=== PATIENT | female | born 1975 | race African-American/Black ===

== ENCOUNTER 2016-12-07 14:29 | Emergency (ER) | payer MEDICAID ==
[~2016-12-07] VITALS: Ht 160 cm; Wt 167.8 kg
[~2016-12-07 14:29] MED LIST: ACCUNEB SOL3 ML/NE1 IN; ALBUTEROL-200 PUFFS/ IH; KEFLEX 500MG.500 MG PO; PREDNISONE 20MG20 MG PO; SYMBICORT1 AE1 IH; TESSALON PERLE100 MG PO; VENTOLIN H0.09 MG/AC IH; ZITHROMAX Z-PA250 M1 PO
--- NOTE | 2016-12-07 14:53 | Urgent Treatment Center Report ---
See Addendum History of Present Issue Date/Time Seen by Provider 12/07/16 8145 Visit Reason Pt arrived:Walked Presenting Problem:PT C/O INCREASED SOA D/T ASTHMA AND LACK OF INHALERS. PT IS REQUESTING A REFILL OF HER INHALERS Location if Accident: Onset of symptoms date/time:/ or onset unknown for:MEDICAL HX UNKNOWN Have you (or family members/close friends) recently traveled outside the [place]? If Yes, where/when: Have you had exposure to infectious disease within the past month? TB? Other? Specify: c/o increasing SOA due to asthma. Hx of asthma typically controlled w/ symbicort daily and occasional albuterol but has been out of symbicort and albuterol x "weeks". PCP suddenly and she hasn't found a new provider yet. Reports she is here for refill of her inhalers. Had albuterol nebs and they help "but only briefly". Using them 3-4 times a day. c/o wheezing and SOA with exertion. Denies fever, malaise. "I don't feel bad. if I am sitting still I am just fine." Declines CXR. "I don't feel like I need that. I just need my inhalers and I think I will be fine again". Source patient Exam Limitations no limitations ALLERGIES Coded Allergies: Penicillins (Intermediate, I-HIVES 06/16/15) Home Medications Active Scripts CEPHALEXIN (Keflex 500MG Capsule) 500 MG PO Q8H #30 CAP Prov: 11/03/15 Albuterol (Albuterol-Hfa Inhaler) 4 PUFF IH Q4HP PRN shortness of breath #1 INH Ref 2 Prov: 04/02/14 Reported Medications BUDESONIDE/FORMOTEROL FUMARATE (Symbicort 160-4.5 Mcg Inhaler) 1 PUFF IH BID #10 History Medical History General CAD? No Angina: No MO: No Hypertension? No Hyperlipidemia? No CHF? No DVT? No PE? No COPD? No Asthma? Yes Anemia? No GERD? No Gastric ulcers? No GI Bleed? No Hernia? No Thyroid Problems? No Hypothyroidism? No CVA? No Seizures? Yes Diabetes? No Renal Insuffiency? No UTI? No Stones? No GB Disease: No Nephritic Syndrome? No Asplenia? No Hepatitis? No Sickle Cell Disease? No Arthritis? No Migraines? No Cataracts? No Glaucoma? No MRSA? No HIV? No TB? No Anxiety? No Depression? No Cancer? No Immunization HX DT/Tetanus UNKNOWN Surgical Hx Previous Surgery?Y TUBAL LIGATION Social History Alcohol Alcohol: No Review of Systems All Other Systems Reviewed and Negative Constitutional see HPI Eyes denies drainage ENT denies: ear pain, nose discharge, nose congestion, throat pain. Respiratory see HPI Cardiovascular denies chest pain, denies palpitations Musculoskeletal denies other (aches) Skin denies rash Psychiatric/Neurological denies headache Physical Exam Vital Signs Vital Signs Date Time Temp Pulse Resp B/P Pulse O2 O2 Flow FiO2 Ox Delivery Rate 12/07 1444 98.4 99 20 153/118 92 12/07 1433 98.4 99 20 153/118 92 General Appearance no apparent distress, obese Ear, Nose, Throat normal ENT inspection Neck non-tender, supple Respiratory Status Yes: trachea midline, chest symmetrical, non tender chest. No: respiratory distress, use of accessory muscles, pain on inspiration, pain on expiration, productive cough, non productive cough. Lung Sounds bilateral: wheezing (expiratory throughout ant/post). Cardiovascular regular rate/rhythm, no peripheral edema, no murmur Neurologic alert, oriented x 3 Mental status normal mood/affect Skin normal color, warm/dry Lymphatic no adenopathy Medical Decision Making LABS/Meds/Orders Pt receiving controlled substance in ED? No Results/Orders Current Medication Orders Sig/Ellie Start time Last Medication Dose Route Stop Time Status Admin Albuterol 2.5 MG ONCE ONE 12/07 1500 DC INH 12/07 1501 Methylprednisolone 125 MG ONCE ONE 12/07 1500 DC 12/07 Sodium Succinate IM 12/07 1501 1504 Methylprednisolone 0 .STK-MED ONE 12/07 1455 DC Sodium Succinate .ROUTE Orders Procedure Date/time Status RT REQUEST ALBUTEROL NEB 12/07 1450 Active Progress [facility] Progress Notes Date 12/07/16 Time 1528 Comment pt reporting "I feel so much better already". Wheezing nearly gone. Very faint wheeze end of expiration billie upper lobes only. Agrees to follow up with a new Primary care. Departure Departure Time of Disposition 1529 Disposition DC Home or Self Care(routine) Clinical Impression Primary Impression: Asthma Qualifiers: Asthma severity: unspecified severity Asthma complication type: with acute exacerbation Qualified Code: J45.901 - Unspecified asthma with (acute ) exacerbation Secondary Impressions: Medication refill Condition STABLE Referrals NO REFERRAL Due to the sudden passing of your family physician, we have provided you with a list of providers accepting patients. I would encourage you find him a new primary care provider and make an appt TAWANDA as it can take weeks to get a new patient appointment. In the meantime, follow up in the clinic or ER for new, worsening or persistent symptoms. Patient Instructions DI for Asthma -- Adult Additional Instructions * Inhaler or neb every 4-6 hours as needed for shortness of breath or wheezing. * Start symbicort immediately today. Use daily as previously scheduled. * Start steroid tomorrow as you had solu-medrol shot in clinic today. Helps with inflammation therefore, cough and wheezing. Follow directions on package. Rvwd side effects. Pt reports they have taken them before. Follow up extremely important Discharge Counseling Counseled pt/family regarding diagnosis, medications/RX, home care, follow up needs Prescriptions Current Visit Scripts ALBUTEROL (Proventil Hfa Inhaler) 1-2 PUFF IH Q4-6H PRN PRN SOA, wheezing #1 CAN use neb or inhaler NOT both BUDESONIDE/FORMOTEROL FUMARATE (Symbicort 160-4.5 Mcg Inhaler) 1 AER IH BID #1 AER Prednisone (Prednisone 20MG) 20 MG PO BID #10 TAB at 8021
[2016-12-07] MEDS ORDERED: PREDNISONE 20MG20 MG PO (15:34)
[2016-12-07] MEDS ORDERED: SYMBICORT 10.10.2 M1 IH (15:34)
[2016-12-07] MEDS ORDERED: PROVENTIL0.09 MG/A1 IH (15:34)
[2016-12-07 15:37] VITALS: BP 153/118
== END 2016-12-07 15:37 | disposition home or self-care (01) ==
LOC: ER 14:29 → UTC 14:41
DX: J45.901 Unspecified asthma with (acute) exacerbation (principal)

== ENCOUNTER 2017-03-11 23:08 | Emergency (ER) | payer MEDICAID ==
[~2017-03-11] VITALS: Ht 160 cm; Wt 181.0 kg
[~2017-03-11 23:08] MED LIST changes: +PROVENTIL0.09 MG/A1 IH; +SYMBICORT 10.10.2 M1 IH
--- OUTSIDE RECORDS SUMMARY | 2017-03-11 23:19 | External Medical Summary Rpt | CCD ---
Author Author , WILD ROME Address Unknown Phone [email or web address] Care Team Providers Care Education Counselor Name Role Phone SARAHI MCCLAIN Unavailable Unavailable ARNMIKE ELIZABETH, ARNOLD Unavailable Unavailable ELIZABETH [facility] Unavailable Unavailable INC, [facility] Unavailable Unavailable [facility], [facility] Unavailable Unavailable IMAGING ASS, [facility] NURSE Unavailable Unavailable PRACTITIONER GR, [facility]URSE PRACTITIONER [facility] Un[facility], [facility], Unavailable Unavailable PLLC, [facility] Unavailable Unavailable EQUIPME, [facility] Purpose Continuity of Care Document - 12-20-2012 through 2016 Problems Code Diagnosis DOS Provider Status [id number] UNSPECIFIED 01-27-2017 [facility] UNCOMPLICAT MEDICAL ED EQUIPME R092 RESPIRATORY 01-27-2017 [facility] E6601 MORBID 12-13-2016 [facility] DUE [facility]ATION TO EXCESS CALORIES X24098 UNSPECIFIED 12-07-2016 [facility] WITH ACUTE INC EXACERBATIO N G4733 OBSTRUCTIVE 07-26-2016 [facility] NURSE SLEEP PRACTITIONE APNEA ADULT R GR PEDIATRIC I2781 COR 07-26-2016 [facility] NURSE P[place]MON[place] PRACTITIONE CHRONIC R GR R0609 OTHER FORMS 07-26-2016 [facility] NURSE OF DYSPNEA PRACTITIONE R GR R600 LOCALIZED 07-26-2016 [facility] NURSE EDEMA PRACTITIONE R GR G4730 SLEEP APNEA 06-06-2016 [facility] UNSPECIFIED F[facility]ATION R89249 UNSPECIFIED 05-04-2016 [facility] WITH STATUS ASTHMATICUS J449 CHRONIC 12-28-2015 SARAHI ELIZABETH OBSTRUCTIVE PULMONARY DISEASE UNS K044 ACUTE 11-03-2015 [facility] IS OF PULPAL ORIGIN K0500 ACUTE 11-03-2015 [facility] INC INDUCED Z6844 BODY MASS 07-29-2015 [place] [facility] BMI SERV 60.0-69.9 FOUNDATION ADULT Z9981 DEPENDENCE 07-29-2015 [facility] SUPPLEMENTA [facility]ATION L OXYGEN R0600 DYSPNEA 07-02-2015 [facility] UNSPECIFIED SERV [facility] R918 OTHER 06-25-2015 [facility] NONSPECIFIC MEDICAL ABNORMAL IMAGING ASS FINDING OF LUNG FIELD R0602 SHORTNESS 06-19-2015 [facility] SERV [facility] Z8709 PERSONAL 06-03-2015 [facility] OTH SERV DISEASES [facility] RESPIRATORY SYSTEM 90219 ASTHMA 10-28-2014 ARNOLD ELIZABETH UNSPECIFIED WITH STATUS ASTHMATICUS 20701 OBESITY, 07-23-2014 [facility] P 4019 UNSPECIFIED 07-23-2014 [facility] P N 490 BRONCHITIS 07-23-2014 [facility] P ACUTE OR CHRONIC 40976 ASTHMA, 07-23-2014 [facility] UNSPECIFIED MEDICAL , IMAGING ASS UNSPECIFIED STATUS 33426 SHORTNESS 07-23-2014 [facility]ATH [facility]ICAL IM[facility] Allergies, Adverse Reactions, Alerts Type Drug Allergy Adverse Reaction to Substance Substance Reaction Severity PCN (penicillin) I-HIVES Unknown Clinical Alert Notifications Alert Asthma: ICS non-compliance with h/o of SA beta agonist Asthma: non-ICS non-compliance with h/o of SA beta agonist Medications Na ND Rx Da Fi Fi Am Da Di Ph RX Ph St me C No te ll ll ou ys ag ar # ys at rm s nt no ma ic us Or Da si cy ia de te s n re d VE 00 10 [address] Ac NT 17 -1 -1 .0 00 L- ti OL 30 8 07 MA ve IN 68 20 20 51 RT 22 17 17 61 HF 0 84 PH A AR 90 MA CY MC G #5 IN 91 MOORE LE R DU 00 10 11 13 30 00 WA Ac LE 08 -1 -1 .0 00 L- ti RA 54 8 7 07 MA ve 61 20 20 51 RT 20 00 17 17 61 0 1 85 PH MC AR G/ MA 5 CY MC G #5 IN 91 MOORE LE R MO 57 10 [address] Ac NT 23 -1 -1 .0 00 L- ti EL 70 07 MA ve UK 25 20 20 50 RT 53 17 17 67 T 0 41 PH SO AR D MA 10 CY MG #5 91 TA BL ET DU 00 08 09 13 30 00 RI Ac LE 08 -2 -2 .0 00 TE ti RA 54 5- 9- 00 01 ve 61 20 20 19 AI 20 00 17 17 68 D 0 1 63 PH MC AR G/ MA 5 CY MC G #3 IN 93 MOORE 8 LE R VE 00 08 09 18 16 00 RI Ac NT 17 -2 -2 .0 00 TE ti OL 30 3- 2- 00 01 ve IN 68 20 20 19 AI 22 17 17 67 D HF 0 26 PH A AR 90 MA CY MC G #3 IN 93 MOORE 8 LE R ME 59 08 09 10 5 00 RI Ac ED 74 -2 -2 .0 00 TE ti NI 60 3- 2- 00 01 ve SO 17 20 20 19 AI NE 50 17 17 67 D 6 32 PH 20 AR MA MG CY TA #3 BL 93 ET 8 VE 00 05 06 18 17 00 WA Ac NT 17 -1 -1 .0 00 L- ti OL 30 4- 6- 00 07 MA ve IN 68 20 20 44 RT 22 17 17 07 HF 0 45 PH A AR 90 MA CY MC G #5 IN 91 MOORE LE R FU 00 04 05 30 30 00 WA Ac RO 37 -1 -1 .0 00 L- ti SE 80 1- 2- 00 07 MA ve IN 20 20 20 48 RT DE 81 17 17 16 0 23 PH 20 AR MA MG CY TA #5 BL 91 ET ME 59 04 05 65 30 00 WA Ac ED 74 -1 -1 .0 00 L- ti NI 60 1- 2- 00 07 MA ve SO 17 20 20 48 RT NE 30 17 17 16 6 26 PH 10 AR MA MG CY TA #5 BL 91 ET VE 00 03 04 18 17 00 WA Ac NT 17 -0 -0 .0 00 L- ti OL 30 7- 7- 00 07 MA ve IN 68 20 20 44 RT 22 17 17 07 HF 0 45 PH A AR 90 MA CY MC G #5 IN 91 MOORE LE R SY 00 03 04 10 30 00 WA Ac MB 18 -0 -0 .1 00 L- ti IC 60 7- 7- 99 07 MA ve OR 37 20 20 44 RT T 02 17 17 07 16 0 43 PH 0- AR 4. MA 5 CY MC G #5 IN 91 MOORE LE R VE 00 01 02 18 17 00 WA Ac NT 17 -2 -2 .0 00 L- ti OL 30 2- 4- 00 07 MA ve IN 68 20 20 44 RT 22 17 17 07 HF 0 45 PH A AR 90 MA CY MC G #5 IN 91 MOORE LE R SY 00 01 02 10 30 00 [facility] MB 18 -2 -2 .1 00 L- ti IC 60 2- 4- 99 07 MA ve OR 37 20 20 44 RT T 02 17 17 07 16 0 43 PH 0- AR 4. MA 5 CY MC G #5 IN 91 MOORE LE R SY 00 12 01 10 30 00 [facility] MB 18 -1 -1 .1 00 L- ti IC 60 1- 3- 99 07 MA ve OR 37 20 20 44 RT T 02 16 17 07 16 0 43 PH 0- AR 4. MA 5 CY MC G #5 IN 91 MOORE LE R CL 63 12 01 21 7 00 RI Ac IN 30 -0 -0 .0 00 TE ti DA 40 2- 9- 00 01 ve MY 69 20 20 16 AI CI 30 16 17 08 D N 1 43 PH HC AR L MA 30 CY 0 MG #3 93 CA 8 PS UL E VE 00 09 0 No NT 17 -0 OL 30 6- Lo IN 68 20 ng 22 13 er HF 4 A Ac 90 ti ve MC G IN MOORE LE R Ae 08 09 0 No ro 37 -0 ch 30 6- Lo am 76 20 ng be 50 13 er r/ 0 Op Ac ti ti moore ve le r Ae 08 09 0 No ro 37 -0 ch 30 6- Lo am 76 20 ng be 50 13 er r/ 0 Op Ac ti ti moore ve le r FU 51 09 0 No RO 07 -0 SE 90 6- Lo IN 07 20 ng DE 32 13 er 0 40 Ac ti MG ve TA BL ET IP 00 09 0 No RA 48 -0 T- 70 5- Lo AL 20 20 ng BU 10 13 er T 1 0. Ac 5- ti 3( ve 2. 5) MG /3 ML Vital Signs 12-21-2012 00:29 Name Value Interpretat Reference Comment ion Range BP 70 mm[Hg] Diastolic BP Systolic 127 mm[Hg] Heart 102 /min Rate/Pulse O2% 98 % Respiratory 18 /min Rate 12-21-2012 00:21 Name Value Interpretat Reference Comment ion Range BP 92 mm[Hg] Diastolic BP Systolic 120 mm[Hg] Heart 98 /min Rate/Pulse Respiratory 20 /min Rate 12-20-2012 23:53 Name Value Interpretat Reference Comment ion Range O2% 86 % Encounters Encounter Start End Date Code Location Performer Type Date [facility] - 7 7 [facility] 7 [facility] - 7 7 [facility] - 6 6 [facility] - 6 6 [facility] - 6 6 [facility] - 6 6 [facility] - 5 5 [facility] LOCO Dominguez MD (ER) 3 23:45 3 00:30 [facility]
--- OUTSIDE RECORDS SUMMARY | 2017-03-11 23:19 | External Medical Summary Rpt | CCD ---
Author Author , WILD ROME Address Unknown Phone [email or web address] Care Team Providers Care Brick Grader Name Role Phone SARAHI MCCLAIN Unavailable Unavailable ARNMIKE ELIZABETH, ARNOLD Unavailable Unavailable ELIZABETH [facility] Unavailable Unavailable INC, [facility] Unavailable Unavailable HOSPITAL P, [facility] Unavailable Unavailable IMAGING ASS, [facility] IM[facility]ING [facility] NURSE Unavailable Unavailable PRACTITIONER GR, [facility]SE PRACTITIONER [facility] Un[facility], [facility], Unavailable Unavailable PLLC, [facility] Unavailable Unavailable EQUIPME, [facility] Purpose Continuity of Care Document - 12-20-2012 through 2016 Problems Code Diagnosis DOS Provider Status [id number] UNSPECIFIED 01-27-2017 [facility] UNCOMPLICAT MEDICAL ED EQUIPME R092 RESPIRATORY 01-27-2017 [facility] E6601 MORBID 12-13-2016 [place] [facility] DUE [facility]ATION TO EXCESS CALORIES R34166 UNSPECIFIED 12-07-2016 [facility] WITH ACUTE INC EXACERBATIO N G4733 OBSTRUCTIVE 07-26-2016 [facility] NURSE SLEEP PRACTITIONE APNEA ADULT R GR PEDIATRIC I2781 COR 07-26-2016 [facility] NURSE P[place]MON[place] PRACTITIONE CHRONIC R GR R0609 OTHER FORMS 07-26-2016 [facility] NURSE OF DYSPNEA PRACTITIONE R GR R600 LOCALIZED 07-26-2016 [facility] NURSE EDEMA PRACTITIONE R GR G4730 SLEEP APNEA 06-06-2016 [facility]PEC[facility]IED [facility] H48909 UNSPECIFIED 05-04-2016 [facility] WITH STATUS ASTHMATICUS J449 CHRONIC 12-28-2015 SARAHI ELIZABETH OBSTRUCTIVE PULMONARY DISEASE UNS K044 ACUTE 11-03-2015 [facility] IS OF PULPAL ORIGIN K0500 ACUTE 11-03-2015 [facility] INC INDUCED Z6844 BODY MASS 07-29-2015 [place] [facility] IN[facility] BMI SERV 60.0-69.9 [facility]OUNDATION ADULT Z9981 DEPENDENCE 07-29-2015 [place] [facility] SUPPLEMENTA [facility]ATION L OXYGEN R0600 DYSPNEA 07-02-2015 [place] [facility] UNSPECIFIED SERV [facility] R918 OTHER 06-25-2015 [facility] NONSPECIFIC MEDICAL ABNORMAL IMAGING ASS FINDING OF LUNG FIELD R0602 SHORTNESS 06-19-2015 [place] [facility] SERV [facility] Z8709 PERSONAL 06-03-2015 [place] [facility] OTH SERV DISEASES [facility] RESPIRATORY SYSTEM 13010 ASTHMA 10-28-2014 ARNOLD ELIZABETH UNSPECIFIED WITH STATUS ASTHMATICUS 22167 OBESITY, 07-23-2014 [facility] P 4019 UNSPECIFIED 07-23-2014 [facility] P N 490 BRONCHITIS 07-23-2014 [facility] P ACUTE OR CHRONIC 98114 ASTHMA, 07-23-2014 [facility] UNSPECIFIED MEDICAL , IMAGING ASS UNSPECIFIED STATUS 10884 SHORTNESS 07-23-2014 [facility]ICAL IMAGING [...] VE 00 10 11 18 30 00 IA Ac NT 17 -1 -1 .0 00 [...] MO 57 10 11 30 30 00 IA Ac NT 23 -1 -1 .0 00 [...] #3 IN 93 MOORE 8 LE R MD 59 08 09 10 5 00 RI [...] 80 1- 2- 00 07 MA ve PA 20 20 20 48 RT DE 81 17 17 16 0 23 PH 20 AR MA MG CY TA #5 BL 91 ET MD 59 04 05 65 30 00 WA [...] SY 00 01 02 10 30 00 [facility] MB 18 -2 -2 .1 00 L- ti IC 60 2- 4- 99 07 MA ve OR 37 20 20 44 RT T 02 17 17 07 16 0 43 PH 0- AR 4. MA 5 CY MC G #5 IN 91 MOORE LE R SY 00 12 01 10 30 00 [facility] MB 18 -1 -1 .1 00 L- [...] RO 07 -0 SE 90 6- Lo PA 07 20 ng DE 32 13 er [...] End Date Code Location Performer Type Date [facility] - 7 7 [facility] - 7 7 [facility] - 6 6 [facility] - 6 6 [facility] - 6 6 [facility] - 6 6 [facility] - 5 5 [facility] LOCO Dominguez MD (ER) 3 23:45 3 00:30 [facility]
--- OUTSIDE RECORDS SUMMARY | 2017-03-11 23:20 | External Medical Summary Rpt ---
Author Author WILD Augustine, WILD Augustine Organization [employer] Address Unknown Phone Unavailable
--- OUTSIDE RECORDS SUMMARY | 2017-03-11 23:20 | External Medical Summary Rpt | CCD ---
Demographics Preferred Language Belizean Marital Status Unknown Moravian Affiliation Unknown Race Unknown Ethnic Group Unknown Author Author , WILD ROME Address Unknown Phone Immunization No patient found.
--- OUTSIDE RECORDS SUMMARY | 2017-03-11 23:20 | External Medical Summary Rpt | CCD ---
Author Author , WILD ROME Address Unknown Phone [email or web address] Care Team Providers Care Auto Parts Salesperson Name Role Phone SARAHI MCCLAIN Unavailable Unavailable ARNMIKE ELIZABETH, ARNOLD Unavailable Unavailable [facility] Un[facility], [facility] Unavailable Unavailable HOSPITAL P, [facility] Unavailable Unavailable IMAGING ASS, [facility] NURSE Unavailable Unavailable PRACTITIONER GR, [facility] Un[facility], [facility], Unavailable Unavailable PLLC, [facility] Unavailable Unavailable EQUIPME, [facility] Purpose Continuity of Care Document - 07-23-2014 through 2016 Problems Code Diagnosis DOS Provider Status [id number] UNSPECIFIED 01-27-2017 [facility] UNCOMPLICAT MEDICAL ED EQUIPME R092 RESPIRATORY 01-27-2017 [facility] E6601 MORBID 12-13-2016 [facility] OBESITY DUE [facility]OUNDATION TO EXCESS CALORIES U53639 UNSPECIFIED 12-07-2016 [facility] WITH ACUTE INC EXACERBATIO N G4733 OBSTRUCTIVE 07-26-2016 [facility] N[facility]SE SLEEP PRACTITIONE APNEA ADULT R GR PEDIATRIC I2781 COR 07-26-2016 [facility] NURSE PULMONALE PRACTITIONE CHRONIC R GR R0609 OTHER FORMS 07-26-2016 [facility] NURSE OF DYSPNEA PRACTITIONE R GR R600 LOCALIZED 07-26-2016 [facility] NURSE EDEMA PRACTITIONE R GR G4730 SLEEP APNEA 06-06-2016 [facility] UNSPECIFIED [facility] R95408 UNSPECIFIED 05-04-2016 [facility] WITH STATUS ASTHMATICUS J449 CHRONIC 12-28-2015 ARNOLD ELIZABETH OBSTRUCTIVE PULMONARY DISEASE UNS K044 ACUTE 11-03-2015 [facility] PERIODONTIT PLLC IS OF PULPAL ORIGIN K0500 ACUTE 11-03-2015 [facility] INDUCED Z6844 BODY MASS 07-29-2015 [facility] BMI SERV 60.0-69.9 [facility]OUNDATION ADULT Z9981 DEPENDENCE 07-29-2015 [facility] SUPPLEMENTA [facility] L OXYGEN R0600 DYSPNEA 07-02-2015 [facility] UNSPECIFIED SERV [facility] R918 OTHER 06-25-2015 [facility] NONSPECIFIC MEDICAL ABNORMAL IMAGING ASS FINDING OF LUNG FIELD R0602 SHORTNESS 06-19-2015 [facility] SERV [facility] Z8709 PERSONAL 06-03-2015 [facility] H[facility] OTH SERV DISEASES [facility]OUNDATION RESPIRATORY SYSTEM 94664 ASTHMA 10-28-2014 ARNOLD ELIZABETH UNSPECIFIED WITH STATUS ASTHMATICUS 26055 OBESITY, 07-23-2014 [facility] 4019 UNSPECIFIED 07-23-2014 [facility] P N 490 BRONCHITIS 07-23-2014 [facility] P ACUTE OR CHRONIC 89736 ASTHMA, 07-23-2014 [facility] UNSPECIFIED MEDICAL , IMAGING ASS UNSPECIFIED STATUS 63291 SHORTNESS 07-23-2014 [facility] Medications Na ND Rx Da Fi Fi Am Da Di Ph RX Ph St me C No te ll ll ou ys ag ar # ys at rm s nt no ma ic us Or Da si cy ia de te s n re d VE 00 10 11 18 30 00 WA Ac NT 17 -1 -1 .0 00 L- ti OL 30 8- 7- 00 07 MA ve IN 68 20 20 51 RT 22 17 17 61 HF 0 84 PH A AR 90 MA CY MC G #5 IN 91 MOORE LE R DU 00 10 11 13 30 00 WA Ac LE 08 -1 -1 .0 00 L- ti RA 54 8- 7- 00 07 MA ve 61 20 20 51 RT 20 00 17 17 61 0 1 85 PH MC AR G/ MA 5 CY MC G #5 IN 91 MOORE LE R MO 57 10 11 30 30 00 WA Ac NT 23 -1 -1 .0 00 L- ti EL 70 8- 7- 00 07 MA ve UK 25 20 20 [...] #3 IN 93 MOORE 8 LE R ID 59 08 09 10 5 00 RI [...] 80 1- 2- 00 07 MA ve ND 20 20 20 48 RT DE 81 17 17 16 0 23 PH 20 AR MA MG CY TA #5 BL 91 ET ID 59 04 05 65 30 00 WA [...] SY 00 01 02 10 30 00 WA Ac MB 18 -2 -2 .1 00 L- ti IC 60 2- 4- 99 07 MA ve OR 37 20 20 44 RT T 02 17 17 07 16 0 43 PH 0- AR 4. MA 5 CY MC G #5 IN 91 MOORE LE R SY 00 12 01 10 30 00 WA Ac MB 18 -1 -1 .1 00 L- [...] #3 93 CA 8 PS UL E Encounters Encounter Start End Date Code Location Performer Type Date [facility] - 7 7 [facility] - 7 7 [facility] - 7 7 [facility] - 6 6 [facility] - 6 6 [facility] - 6 6 [facility] - 5 5 [facility]
--- OUTSIDE RECORDS SUMMARY | 2017-03-11 23:20 | External Medical Summary Rpt | CCD ---
Demographics Preferred Language Nigerien Marital Status Unknown Sikh Affiliation Unknown Race Unknown Ethnic Group Unknown Author Author , WILD ROME Address Unknown Phone Immunization No patient found.
--- OUTSIDE RECORDS SUMMARY | 2017-03-11 23:20 | External Medical Summary Rpt | CCD ---
Author Author , [place] Address Unknown Phone [email or web address] Care Team Providers Care Assurance Officer Name Role Phone SARAHI MCCLAIN Unavailable Unavailable ARNMIKE ELIZABETH, ARNOLD Unavailable Unavailable [facility] Unavailable Unavailable [facility], [facility] Unavailable Unavailable HOSPITAL P, [facility] P [facility] Unavailable Unavailable IMAGING ASS, [facility] NURSE Unavailable Unavailable PRACTITIONER GR, [facility] Un[facility], [facility] Un[facility] Unavailable [facility], [facility] Unavailable Unavailable EQUIPME, [facility] Purpose Continuity of Care Document - 07-23-2014 through 2016 Problems Code Diagnosis DOS Provider Status [id number] UNSPECIFIED 01-27-2017 [facility] UNCOMPLICAT [facility]ICAL ED EQUIPME R092 RESPIRATORY 01-27-2017 [facility] E6601 MORBID 12-13-2016 [facility] OBESITY DUE [facility]OUNDATION TO EXCESS CALORIES E03317 UNSPECIFIED 12-07-2016 [facility] WITH ACUTE INC EXACERBATIO N G4733 OBSTRUCTIVE 07-26-2016 [facility]SE SLEEP PRACTITIONE APNEA ADULT R GR PEDIATRIC I2781 COR 07-26-2016 [facility] NURSE PULMONALE PRACTITIONE CHRONIC R GR R0609 OTHER FORMS 07-26-2016 [facility] NURSE OF DYSPNEA PRACTITIONE R GR R600 LOCALIZED 07-26-2016 [facility] NURSE EDEMA PRACTITIONE R GR G4730 SLEEP APNEA 06-06-2016 [facility] UNSPECIFIED [facility] C36200 UNSPECIFIED 05-04-2016 [facility] WITH STATUS ASTHMATICUS J449 CHRONIC 12-28-2015 ARNOLD ELIZABETH OBSTRUCTIVE PULMONARY DISEASE UNS K044 ACUTE 11-03-2015 [facility] IS OF PULPAL ORIGIN K0500 ACUTE 11-03-2015 [facility] INDUCED Z6844 BODY MASS 07-29-2015 [facility] BMI SERV 60.0-69.9 FOUNDATION ADULT Z9981 DEPENDENCE 07-29-2015 [facility] SUPPLEMENTA [facility] L OXYGEN R0600 DYSPNEA 07-02-2015 [facility]NSPECIFIED SERV [facility] R918 OTHER 06-25-2015 [facility] ABNORMAL [facility] FINDING OF LUNG FIELD R0602 SHORTNESS 06-19-2015 [facility] BREATH SERV F[facility]ATION Z8709 PERSONAL 06-03-2015 [facility] OTH SERV DISEASES [facility] RESPIRATORY SYSTEM 72841 ASTHMA 10-28-2014 AR[facility] ELIZABETH UNSPECIFIED WITH STATUS ASTHMATICUS 15693 OBESITY, 07-23-2014 [facility]019 UNSPECIFIED 07-23-2014 [facility] P N 490 BRONCHITIS 07-23-2014 [facility] P ACUTE OR CHRONIC 64434 ASTHMA, 07-23-2014 [facility] U[facility]PECIFIED [facility]ICAL , IMAGING ASS UNSPECIFIED STATUS 56677 SHORTNESS 07-23-2014 [facility] Medications Na [...] #3 IN 93 MOORE 8 LE R [place] 59 08 09 10 5 00 RI [...] 80 1- 2- 00 07 MA ve AK 20 20 20 48 RT DE 81 17 17 16 0 23 PH 20 AR MA MG CY TA #5 BL 91 ET [place] 59 04 05 65 30 00 WA [...] End Date Code Location Performer Type Date [facility] - 7 7 [facility] - 7 7 [facility] - 7 7 [facility] - [address] [facility] - [address] [facility] - 6 6 [facility] - 6 6 [facility] - 5 5 [facility]
[2017-03-11] MEDS ORDERED: DULERA1 AR1 IH (23:21)
--- NOTE | 2017-03-11 23:34 | Emergency Room Report ---
History of Present Illness Time Seen by [id number] Presenting Problem in Triage Pt arrived:Walked Presenting Problem:C/O BILATERAL LEG PAIN FOR APPROX 2 WEEKS. 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 N Clinical Suspician of Infection? Y Mental Status: 1 - Regular (Normal Baseline) Sepsis Risk:Possible Sepsis Risk Have you (or family members/close friends) recently traveled outside the [place]? N If Yes, where/when: Have you had exposure to infectious disease within the past month? N TB? Other? Specify: Comment The patient complains of bilateral leg pain, swelling, weeping, and redness. She says that she has a history of cellulitis and thinks that she is getting infection or legs causing these symptoms. She has not had a fever. She says that she was on Lasix, prescribed by her pulmonary doctor in July. This was supposed to be a daily medication. She says however that she stopped taking it because it was making her urinate at work. She started taking it again 3 weeks ago, but ran out on Monday 3 days ago. However, she says that she has a refill. Has not picked up her refill. 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 States her blood pressure has been running high recently. She is not treated for hypertension. ALLERGIES Coded Allergies: Penicillins (Intermediate, I-HIVES 06/16/15) Home Medications Active Scripts ALBUTEROL (Proventil Hfa Inhaler) 1-2 PUFF IH Q4-6H PRN PRN SOA, wheezing #1 CAN Prov: 12/07/16 Reported Medications MOMETASONE/FORMOTEROL (Dulera 200 Mcg/5 Mcg Inhaler) 2 PUFFS IH BID #13 History Medical History General CAD? No Angina: No OR: No Hypertension? No Hyperlipidemia? No CHF? No DVT? No PE? No COPD? No Asthma? Yes Anemia? No GERD? No Gastric ulcers? No GI Bleed? No Hernia? No Thyroid Problems? No Hypothyroidism? No CVA? No Seizures? Yes Diabetes? No Renal Insuffiency? No End Stage Renal Disease? No UTI? No Stones? No GB Disease: No Nephritic Syndrome? No Asplenia? No Hepatitis? No Sickle Cell Disease? No Arthritis? No Migraines? No Cataracts? No Glaucoma? No MRSA? No HIV? No TB? No Anxiety? No Depression? No Cancer? 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 Social History Smoking Hx Smoker: Never Smoker Tobacco: No Alcohol Alcohol: No Review of Systems All Other Systems Reviewed and Negative Constitutional denies fever Respiratory denies shortness of breath Cardiovascular denies chest pain, edema Musculoskeletal see HPI Physical Exam Vital Signs Vital Signs Date Time Temp Pulse Resp B/P Pulse O2 O2 Flow FiO2 Ox Delivery Rate 03/12 0115 98.1 96 20 158/99 92 03/12 0021 100 20 150/100 95 03/11 2315 98.1 105 20 155/122 95 General Appearance no apparent distress, sitting in chair Eye Exam - bilateral eye normal exam, bilateral eye PERRL, bilateral eye EOMI Ear, Nose, Throat hearing grossly normal, normal ENT inspection Neck normal inspection, non-tender, supple, full range of motion Respiratory Status Yes: trachea midline, chest symmetrical. No: respiratory distress. Lung Sounds bilateral: normal breath sounds, lungs clear. Cardiovascular normal exam, regular rate/rhythm, no peripheral edema, no gallop, no JVD, no murmur, no rub, normal peripheral pulses Peripheral Pulses Pulses normal Yes Gastrointestinal non tender, soft Extremities swelling, large amount of edema bilateral lower extremities. Venous stasis changes with hyperpigmentation of the lower half of both lower legs. A few small areas of superficial skin breakdown with weeping, likely due to ruptured small vesicles., mild erythema at the periphery of her hyperpigmentation and of both feet, bilaterally symmetric. Appears consistent with stasis dermatitis rather than cellulitis. 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 Yes Comment [id number] 0 rxs. Results/Orders Laboratory Tests 03/12/17 0009: Sodium 143, Potassium 4.3, Chloride 102, Carbon Dioxide 38 H, BUN 10, Creatinine 0.9, Estimated Creat Clear 235 H, Estimated GFR (MDRD) 69, Glucose 110 H, Calcium 9.1, Total Bilirubin 0.2, AST 17, ALT 18, Alkaline Phosphatase 121 H, Total Protein 7.8, Albumin 3.5, Globulin 4.3 H, Albumin/Globulin Ratio 0.8 L, WBC 8.4, RBC 5.41 H, Hgb 12.9, Hct 45.8, MCV 84.6, RDW 15.3, Plt Count 340, MPV 8.0, Gran % 69.4, Gran # 5.8, Lymphocytes % 20.2, Monocytes % 4.7, Eosinophils % 5.3, Basophils % 0.4, Lymphocytes # 1.7, Monocytes # 0.4, Eosinophils # 0.5 H, Basophils # 0.0, PUBS MCHC 28.1 L, MCH 23.8 L Current Medication Orders Sig/Ellie Start time Last Medication Dose Route Stop Time Status Admin Acetaminophen/ 1 JOCY ONCE ONE 03/12 115 DC 03/12 Codeine Phosphate PO 03/12 011 0110 Acetaminophen/ 0 .STK-MED ONE 03/12 0109 DC Codeine Phosphate PO Furosemide 40 MG ONCE ONE 03/12 0045 DC 03/12 IV 03/12 004 0043 Furosemide 0 .STK-MED ONE 03/12 0042 DC .ROUTE Sodium Chloride 10 ML PRN PRN 03/11 2345 DCD IV 03/12 2344 Orders Procedure Date/time Status IV SALINE LOCK 03/11 2344 Active CBC WITH AUTO DIFF 03/11 2344 Complete CHEM 12 PROFILE 03/11 2344 Complete Departure Departure Disposition DC Home or Self Care(routine) Clinical Impression Primary Impression: Peripheral edema Secondary Impressions: Venous stasis Venous stasis dermatitis Qualifiers: Laterality: bilateral Qualified Code: I87.2 - Venous insufficiency (chronic) (peripheral) Condition STABLE Patient Instructions DI for Edema Due to Venous Stasis, DI for Peripheral Edema -- Bilateral Additional Instructions Start taking Lasix daily, start today. Elevate legs as frequently as possible. See your physician this week for follow-up. Return to the emergency room if worsening pain or swelling, or if fever. ED Critical Care Critical Care No at 0135
--- NOTE | 2017-03-11 23:34 | Emergency Room Report ---
History of Present Illness Time Seen by [id number] Presenting Problem in Triage Pt arrived:Walked Presenting Problem:C/O BILATERAL LEG PAIN FOR APPROX 2 WEEKS. 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 N Clinical Suspician of Infection? Y Mental Status: 1 - Regular (Normal Baseline) Sepsis Risk:Possible Sepsis Risk Have you (or family members/close friends) recently traveled outside the [place]? N If Yes, where/when: Have you had exposure to infectious disease within the past month? N TB? Other? Specify: Comment The patient complains of bilateral leg pain, swelling, weeping, and redness. She says that she has a history of cellulitis and thinks that she is getting infection or legs causing these symptoms. She has not had a fever. She says that she was on Lasix, prescribed by her pulmonary doctor in July. This was supposed to be a daily medication. She says however that she stopped taking it because it was making her urinate at work. She started taking it again 3 weeks ago, but ran out on Monday 3 days ago. However, she says that she has a refill. Has not picked up her refill. 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 States her blood pressure has been running high recently. She is not treated for hypertension. ALLERGIES Coded Allergies: Penicillins (Intermediate, I-HIVES 06/16/15) Home Medications Active Scripts ALBUTEROL (Proventil Hfa Inhaler) 1-2 PUFF IH Q4-6H PRN PRN SOA, wheezing #1 CAN Prov: 12/07/16 Reported Medications MOMETASONE/FORMOTEROL (Dulera 200 Mcg/5 Mcg Inhaler) 2 PUFFS IH BID #13 History Medical History General CAD? No Angina: No ID: No Hypertension? No Hyperlipidemia? No CHF? No DVT? No PE? No COPD? No Asthma? Yes Anemia? No GERD? No Gastric ulcers? No GI Bleed? No Hernia? No Thyroid Problems? No Hypothyroidism? No CVA? No Seizures? Yes Diabetes? No Renal Insuffiency? No End Stage Renal Disease? No UTI? No Stones? No GB Disease: No Nephritic Syndrome? No Asplenia? No Hepatitis? No Sickle Cell Disease? No Arthritis? No Migraines? No Cataracts? No Glaucoma? No MRSA? No HIV? No TB? No Anxiety? No Depression? No Cancer? 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 Social History Smoking Hx Smoker: Never Smoker Tobacco: No Alcohol Alcohol: No Review of Systems All Other Systems Reviewed and Negative Constitutional denies fever Respiratory denies shortness of breath Cardiovascular denies chest pain, edema Musculoskeletal see HPI Physical Exam Vital Signs Vital Signs Date Time Temp Pulse Resp B/P Pulse O2 O2 Flow FiO2 Ox Delivery Rate 03/12 0115 98.1 96 20 158/99 92 03/12 0021 100 20 150/100 95 03/11 2315 98.1 105 20 155/122 95 General Appearance no apparent distress, sitting in chair Eye Exam - bilateral eye normal exam, bilateral eye PERRL, bilateral eye EOMI Ear, Nose, Throat hearing grossly normal, normal ENT inspection Neck normal inspection, non-tender, supple, full range of motion Respiratory Status Yes: trachea midline, chest symmetrical. No: respiratory distress. Lung Sounds bilateral: normal breath sounds, lungs clear. Cardiovascular normal exam, regular rate/rhythm, no peripheral edema, no gallop, no JVD, no murmur, no rub, normal peripheral pulses Peripheral Pulses Pulses normal Yes Gastrointestinal non tender, soft Extremities swelling, large amount of edema bilateral lower extremities. Venous stasis changes with hyperpigmentation of the lower half of both lower legs. A few small areas of superficial skin breakdown with weeping, likely due to ruptured small vesicles., mild erythema at the periphery of her hyperpigmentation and of both feet, bilaterally symmetric. Appears consistent with stasis dermatitis rather than cellulitis. 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 Yes Comment [id number] 0 rxs. Results/Orders Laboratory Tests 03/12/17 0009: Sodium 143, Potassium 4.3, Chloride 102, Carbon Dioxide 38 H, BUN 10, Creatinine 0.9, Estimated Creat Clear 235 H, Estimated GFR (MDRD) 69, Glucose 110 H, Calcium 9.1, Total Bilirubin 0.2, AST 17, ALT 18, Alkaline Phosphatase 121 H, Total Protein 7.8, Albumin 3.5, Globulin 4.3 H, Albumin/Globulin Ratio 0.8 L, WBC 8.4, RBC 5.41 H, Hgb 12.9, Hct 45.8, MCV 84.6, RDW 15.3, Plt Count 340, MPV 8.0, Gran % 69.4, Gran # 5.8, Lymphocytes % 20.2, Monocytes % 4.7, Eosinophils % 5.3, Basophils % 0.4, Lymphocytes # 1.7, Monocytes # 0.4, Eosinophils # 0.5 H, Basophils # 0.0, PUBS MCHC 28.1 L, MCH 23.8 L Current Medication Orders Sig/Ellie Start time Last Medication Dose Route Stop Time Status Admin Acetaminophen/ 1 JOCY ONCE ONE 03/12 115 DC 03/12 Codeine Phosphate PO 03/12 011 0110 Acetaminophen/ 0 .STK-MED ONE 03/12 0109 DC Codeine Phosphate PO Furosemide 40 MG ONCE ONE 03/12 0045 DC 03/12 IV 03/12 004 0043 Furosemide 0 .STK-MED ONE 03/12 0042 DC .ROUTE Sodium Chloride 10 ML PRN PRN 03/11 2345 DCD IV 03/12 2344 Orders Procedure Date/time Status IV SALINE LOCK 03/11 2344 Active CBC WITH AUTO DIFF 03/11 2344 Complete CHEM 12 PROFILE 03/11 2344 Complete Departure Departure Disposition DC Home or Self Care(routine) Clinical Impression Primary Impression: Peripheral edema Secondary Impressions: Venous stasis Venous stasis dermatitis Qualifiers: Laterality: bilateral Qualified Code: I87.2 - Venous insufficiency (chronic) (peripheral) Condition STABLE Patient Instructions DI for Edema Due to Venous Stasis, DI for Peripheral Edema -- Bilateral Additional Instructions Start taking Lasix daily, start today. Elevate legs as frequently as possible. See your physician this week for follow-up. Return to the emergency room if worsening pain or swelling, or if fever. ED Critical Care Critical Care No at 0135
[2017-03-12 00:36] LABS: HEMOGLOBIN 12.9 g/dL (12.2-16.2); LYMPH # 1.7 K/mm3 (0.7-4.5); LYMPH % 20.2 % (10-50.0)
[2017-03-12 01:15] VITALS: BP 158/99
== END 2017-03-12 01:16 | disposition home or self-care (01) ==
LOC: ER 23:08
PROVIDERS: Emergency Medicine
DX: I87.2 Venous insufficiency (chronic) (peripheral) (principal); I87.8 Other specified disorders of veins; J45.909 Unspecified asthma, uncomplicated; I10 Essential (primary) hypertension; Z88.0 Allergy status to penicillin

== ENCOUNTER → 2017-03-31 | Outpatient (CLI) | payer MEDICAID ==
[~2017-03-31] MED LIST changes: +BACTROBAN2% TP; +DULERA1 AR1 IH; +FUROSEMIDE 20MG20 MG PO; +LASIX 40MG. TAB40 MG PO; +MONTELUKAST SOD10 MG PO
[2017-03-31 18:28] LABS: HEMOGLOBIN 11.7 g/dL (12.2-16.2); LYMPH # 1.6 K/mm3 (0.7-4.5); LYMPH % 17.8 % (10-50.0)
[2017-03-31 19:05] LABS: BUN 11 mg/dL (7-18)
[2017-03-31 19:07] LABS: GFR (ESTIMATED) 69 ML/MIN (59-)
== END ==
LOC: LAB 17:25
PROVIDERS: Nurse Practitioner Family
DX: R53.83 Other fatigue (principal); E55.9 Vitamin D deficiency, unspecified